=== PATIENT | male | born 1990 | race Caucasian/White ===

== ENCOUNTER 2024-02-08 14:32 | Emergency (ER) | payer BC ==
[~2024-02-08] VITALS: Ht 170.2 cm; Wt 68.5 kg
[2024-02-08 15:40] VITALS: BP 102/63; TEMP 98.2; O2SAT 98
== END 2024-02-08 15:41 | disposition left against medical advice (07) ==
LOC: ER 14:32
DX: S09.8XXA Other specified injuries of head, initial encounter (principal); R55 Syncope and collapse; Z88.1 Allergy status to other antibiotic agents; X58.XXXA Exposure to other specified factors, initial encounter; Y93.89 Activity, other specified; Y92.89 Other specified places as the place of occurrence of the external cause; Y99.8 Other external cause status
CPT/HCPCS: 70450-TC